=== PATIENT | male | born 1975 | race Caucasian/White ===

== ENCOUNTER → 2021-12-01 07:18 | Outpatient (CLI) | payer BC, SELFPAY ==
[2021-12-01 18:20] LABS: Coronavirus 19, PCR Not Detected (NotDetected); Influenza A, PCR Not Detected (NotDetected); Influenza B, PCR Not Detected (NotDetected)
== END ==
PROVIDERS: PCP Internal Medicine Adolescent Medicine; Visit Provider Internal Medicine Adolescent Medicine
DX: Z20.822 Contact with and (suspected) exposure to COVID-19 (principal)
CPT/HCPCS: C9803; U0003; U0005